=== PATIENT | female | born 1950 | race African-American/Black ===

== ENCOUNTER 2017-09-18 09:37 | Emergency (ER) | payer MEDICARE ==
[2017-09-18] MEDS: IPRATRPIUM/ALBUTEROL 0.5/2.5MG 3 ML NEBU. NEB (10:17)
[2017-09-18] MEDS: predniSONE 10 MG TABLET PO ×2 (10:26→11:25)
[2017-09-18 10:42] LABS: BASO % 1 % (0-3); EOS # 0.1 x10^3/uL (0.0-0.7); EOS % 2 % (0-3); HEMATOCRIT 39.9 % (36.0-47.0); HEMOGLOBIN 12.8 g/dL (12.0-15.5); LYMPH # 3.3 x10^3/uL (1.0-4.8); LYMPH % 56 % (24-48); MEAN CORPUSCULAR HEMOGLOBIN 26 pg (25-35); MEAN CORPUSCULAR HGB CONC 32 g/dL (31-37); MEAN CORPUSCULAR VOLUME 79 fL (79-100); MONO # 0.6 x10^3/uL (0.0-1.1); MONO % 10 % (0-9); NEUT # 1.8 x10^3uL (1.8-7.7); NEUT % 31 % (31-73); PLATELET COUNT 259 x10^3/uL (140-400); RED BLOOD COUNT 5.03 x10^6/uL (3.50-5.40); RED CELL DISTRIBUTION WIDTH 14.7 % (11.5-14.5); WHITE BLOOD COUNT 5.9 x10^3/uL (4.0-11.0)
[2017-09-18 10:45] LABS: ADD MAN DIFF? YES
[2017-09-18 10:55] LABS: ANION GAP 11 (6-14); BLOOD UREA NITROGEN 12 mg/dL (7-20); CALCIUM 9.7 mg/dL (8.5-10.1); CARBON DIOXIDE 27 mmol/L (21-32); CHLORIDE 104 mmol/L (98-107); GFR 66.7; GLUCOSE 108 mg/dL (70-99); POTASSIUM 3.9 mmol/L (3.5-5.1); SODIUM 142 mmol/L (136-145)
[2017-09-18 11:07] LABS: TROPONINI < 0.017 ng/mL (0.000-0.055)
[2017-09-18 11:29] LABS: BILIRUBIN,URINE NEGATIVE (NEG); CLARITY,URINE CLEAR; COLOR,URINE YELLOW; GLUCOSE,URINE NEGATIVE (NEG); NITRITE,URINE NEGATIVE (NEG); PROTEIN,URINE NEGATIVE (NEG-TRACE); UROBILINOGEN,URINE 0.2 mg/dL (0.2 mg/dL)
[2017-09-18] MEDS: ALBUTEROL SULFATE 2.5 MG/3 ML NEBU. NEB ×2 (11:30→14:12)
[2017-09-18 11:39] LABS: BACTERIA,URINE FEW /HPF (0-FEW); RBC,URINE RARE /HPF (0-2); SQUAMOUS EPITHELIAL CELL,UR FEW /LPF
[2017-09-18 12:53] LABS: % ATYL 4 % (0-0); % BANDS 3 % (0-9); % EOS 3 % (0-5); % LYMPHS 63 % (24-48); % MONOS 5 % (0-10); % SEGS 22 % (35-66); PLT ESTIMATE ADEQUATE (ADEQUATE)
[2017-09-18] MEDS: MECLIZINE HCL 12.5 MG TABLET. PO (14:21)
[2017-09-18 14:27] LABS: D-DIMER 0.43 ug/mlFEU (0.00-0.50)
== END 2017-09-18 15:44 | disposition home or self-care (01) ==
LOC: ER 09:37
DX: R06.02 Shortness of breath (principal); R05 Cough; R42 Dizziness and giddiness; J45.909 Unspecified asthma, uncomplicated; G25.81 Restless legs syndrome; Z88.5 Allergy status to narcotic agent; Z91.041 Radiographic dye allergy status; Z88.0 Allergy status to penicillin
CPT/HCPCS: 36415; 71045; 80048; 81001; 84484; 85007; 85025; 85379; 93005; 94640; 99285-25; J7512; J7613; J7620; J8597

== ENCOUNTER 2018-08-13 11:03 | Emergency (ER) | payer MEDICARE ==
[~2018-08-13] VITALS: Ht 154.9 cm; Wt 67.6 kg
[~2018-08-13 11:03] MED LIST: ALBU0.63 NEB; CLON0.5T PO; GABA-689 PO; HYDR-2761 PO; HYDR-3164 PO; IBUP-1060 PO; LORA0.5T PO; LORA1TAB PO; MECL25TA3 PO; MONT10TA9 PO; PRED50TA PO; TRAM50TA PO
[2018-08-13 11:17] VITALS: BP 128/62
[2018-08-13] MEDS ORDERED: diazePAM 2 MG TABLET PO ONE (11:30)
[2018-08-13] MEDS ORDERED: KETOROLAC 60 MG/2 ML VIAL. IM ONE (11:30)
--- NOTE | 2018-08-13 11:30 | PHYS DOC ---
Past Medical History Past Medical History: Asthma Additional Past Medical Histor: RESTLESS LEG SYNDROME, MENIERES, VERTIGO Past Surgical History: Cholecystectomy, Hysterectomy, Tonsillectomy, Other Additional Past Surgical Histo: BACK SURGERY Alcohol Use: None Drug Use: None Adult General Chief Complaint Chief Complaint: BACK PAIN - NO INJURY [facility] HPI Patient is a 67 year old female presents to the ED complaining of back pain 2 weeks ago. Patient states she had back pain off and on for the last 2 weeks. Describes the pain as sharp. Rates the pain as 8 out of 10. States that she was seen by her doctor on Monday and is being sent for outpatient MRI. Patient states she has been taking tramadol at home without relief. Patient able to ambulate without assistance. Denies injury, bowel/bladder changes, saddle anesthesia, radiating pain, weakness, dizziness, chest pain, shortness of breath , dysuria, hematuria, flank pain or fever. Review of Systems Review of Systems Constitutional: Denies fever or chills [] Eyes: Denies change in visual acuity, redness, or eye pain [] HENT: Denies nasal congestion or sore throat [] Respiratory: Denies cough or shortness of breath [] Cardiovascular: No additional information not addressed in HPI [] GI: Denies abdominal pain, nausea, vomiting, bloody stools or diarrhea [] : Denies dysuria or hematuria [] Musculoskeletal: Complains of back pain. Denies joint pain [] Integument: Denies rash or skin lesions [] Neurologic: Denies headache, focal weakness or sensory changes [] All other systems were reviewed and found to be within normal limits, except as documented in this note. Current Medications Current Medications Current Medications Medications (Trade) Dose Ordered Sig/[facility] Start Time Stop Time Status Last Admin Dose Admin Diazepam (Valium) 2 mg 1X ONCE 08/13/18 11:30 08/13/18 11:31 DC 08/13/18 12:11 2 MG Ketorolac Tromethamine (Toradol Im) 60 mg 1X ONCE 08/13/18 11:30 08/13/18 11:31 DC 08/13/18 11:41 60 MG Allergies Allergies Allergies Coded Allergies Type Severity Reaction Last Updated Verified iodine Allergy Severe 03/03/16 Yes Penicillins Allergy Intermediate RASH 03/01/16 Yes naproxen Adverse Reaction Mild Nausea and Vomiting 03/01/16 Yes Physical Exam Physical Exam Constitutional: Well developed, well nourished, no acute distress, non-toxic appearance. [] HENT: Normocephalic, atraumatic. Eyes: PERRLA, EOMI, conjunctiva normal, no discharge. [] Neck: Normal range of motion, no tenderness, supple, no stridor. [] Cardiovascular:Heart rate regular rhythm, no murmur [] Lungs & Thorax: Bilateral breath sounds clear to auscultation [] Abdomen: Bowel sounds normal, soft, no tenderness, no masses, no pulsatile masses. [] Skin: Warm, dry, no erythema, no rash. [] Back: No midline bony tenderness, FROM. NV intact. No overlying skin changes. negative SLR. no CVA tenderness. [] Extremities: No tenderness, no cyanosis, no clubbing, ROM intact, no edema. [] Neurologic: Alert and oriented X 3, normal motor function, normal sensory function, no focal deficits noted. DTR's intact. [] Psychologic: Affect normal, judgement normal, mood normal. [] Current Patient Data Vital Signs Vital Signs Date Time Temp Pulse Resp B/P (MAP) Pulse Ox O2 Delivery O2 Flow Rate FiO2 08/13/18 11:17 98.6 74 20 128/62 (84) 97 Room Air 98.6 EKG EKG [] Radiology/Procedures Radiology/Procedures [] Course & Med Decision Making Course & Med Decision Making Pertinent Labs and Imaging studies reviewed. (See chart for details) []No bony tenderness. No imaging warranted. Patient's pain improved in ED. States she is feeling much better. Will discharge with analgesics outpatient. Patient able to ambulate without assistance. Discussed follow-up with PCP/ orthopedics for worsening pain. Provided contact information/education. Discussed reasons to return to the ED. Patient understands and agrees with plan. Dragon Disclaimer Dragon Disclaimer This electronic medical record was generated, in whole or in part, using a voice recognition dictation system. Departure Departure Impression: Primary Impression: Back pain Disposition: 01 HOME, SELF-CARE Condition: IMPROVED Referrals: UNKNOWN PCP NAME (PCP) ZACH MARY II, MD Patient Instructions: Back Pain, Adult Scripts Hydrocodone/Apap 5-325 (NORCO 5-325 TABLET) 1 Each Tablet 1 TAB PO TID, #10 TAB Prov: PAUL JEROME 08/13/18 PAUL JEROME Aug 13, 2018 11:29
[2018-08-13] MEDS ORDERED: HYDR-3164 PO (12:15)
== END 2018-08-13 12:17 | disposition home or self-care (01) ==
LOC: ER 11:03
DX: M54.9 Dorsalgia, unspecified (principal); J45.909 Unspecified asthma, uncomplicated; Z90.49 Acquired absence of other specified parts of digestive tract; Z90.710 Acquired absence of both cervix and uterus; Z88.0 Allergy status to penicillin; Z88.5 Allergy status to narcotic agent; Z91.041 Radiographic dye allergy status
CPT/HCPCS: 96372; 99283; J1885

== ENCOUNTER 2019-04-19 10:31 | Emergency (ER) | payer MEDICARE ==
[~2019-04-19] VITALS: Ht 149.9 cm; Wt 71.2 kg
[~2019-04-19 10:31] MED LIST changes: +MONT10TA49 PO; -MONT10TA9 PO; +Prednisone PO
[2019-04-19 11:07] LABS: BILIRUBIN,URINE NEGATIVE (NEG); CLARITY,URINE CLEAR; COLOR,URINE YELLOW; NITRITE,URINE NEGATIVE (NEG); PH,URINE 5.5; PROTEIN,URINE NEGATIVE (NEG-TRACE); UROBILINOGEN,URINE 0.2 mg/dL (0.2 mg/dL)
[2019-04-19] MEDS ORDERED: ALBUTEROL SULFATE 2.5 MG/3 ML NEBU. NEB ONE (11:15)
[2019-04-19] MEDS ORDERED: ONDANSETRON PF 4 MG/2 ML VIAL. IV ONE (11:15)
[2019-04-19] MEDS ORDERED: predniSONE 10 MG TABLET PO ONE (11:15)
[2019-04-19] MEDS ORDERED: IV NORMAL SALINE 1000ML BAG 1,000 ML IV ONE (11:15)
[2019-04-19] MEDS ORDERED: HYDROcodone/APAP 5/325MG 1 TAB TABLET PO ONE (11:15)
[2019-04-19 11:24] LABS: SQUAMOUS EPITHELIAL CELL,UR MANY /LPF
[2019-04-19 11:25] LABS: BACTERIA,URINE FEW /HPF (0-FEW)
[2019-04-19 11:35] LABS: CALCIUM 8.7 mg/dL (8.5-10.1); CREATININE 0.9 mg/dL (0.6-1.0); GFR 74.9; POTASSIUM 3.9 mmol/L (3.5-5.1)
[2019-04-19 11:36] LABS: BASO % 1 % (0-3); EOS # 0.1 x10^3/uL (0.0-0.7); EOS % 1 % (0-3); HEMATOCRIT 39.7 % (36.0-47.0); HEMOGLOBIN 12.4 g/dL (12.0-15.5); LYMPH # 1.8 x10^3/uL (1.0-4.8); LYMPH % 38 % (24-48); MEAN CORPUSCULAR HEMOGLOBIN 25 pg (25-35); MEAN CORPUSCULAR HGB CONC 31 g/dL (31-37); MEAN CORPUSCULAR VOLUME 79 fL (79-100); MONO # 0.7 x10^3/uL (0.0-1.1); MONO % 15 % (0-9); NEUT # 2.2 x10^3/uL (1.8-7.7); NEUT % 45 % (31-73); PLATELET COUNT 189 x10^3/uL (140-400); RED BLOOD COUNT 5.03 x10^6/uL (3.50-5.40); RED CELL DISTRIBUTION WIDTH 15.4 % (11.5-14.5); WHITE BLOOD COUNT 4.8 x10^3/uL (4.0-11.0)
[2019-04-19 11:40] LABS: ALBUMIN 3.6 g/dL (3.4-5.0); ALBUMIN/GLOBULIN RATIO 0.9 (1.0-1.7); TOTAL BILIRUBIN 0.4 mg/dL (0.2-1.0); TOTAL PROTEIN 7.6 g/dL (6.4-8.2)
--- NOTE | 2019-04-19 11:42 | PHYS DOC ---
Past Medical History Past Medical History: Asthma, Other Additional Past Medical Histor: RESTLESS LEG SYNDROME, MENIERES, VERTIGO Past Surgical History: Cholecystectomy, Hysterectomy, Tonsillectomy, Other Additional Past Surgical Histo: BACK SURGERY Alcohol Use: None Drug Use: None Adult General Chief Complaint Chief Complaint: WEAKNESS/GENERALIZED HPI HPI Patient is a 68 year old female who presents with states that the flu shot on Monday and then began having headache, cough with yellow mucus production, nausea, weakness. States on Monday she vomited twice. Patient does have a history of asthma and took an asthma albuterol treatment at 7 AM today. Rates her overall pain 8 out of 10. She states from all the coughing she's having upper back pain and bilateral side pain. Patient states she has not been taking any other medications except drinking tea and ate some soup yesterday. Review of Systems Review of Systems Constitutional: Denies fever or chills [] Eyes: Denies change in visual acuity, redness, or eye pain [] HENT: nasal congestion or sore throat [] Respiratory: cough or shortness of breath [] GI: Denies abdominal pain. + nausea, +vomiting, bloody stools or diarrhea [] Musculoskeletal: upper back pain, bilateral side pain, generalized weakness or joint pain [] All other systems were reviewed and found to be within normal limits, except as documented in this note. Current Medications Current Medications Current Medications Medications (Trade) Dose Ordered Sig/[facility] Start Time Stop Time Status Last Admin Dose Admin Acetaminophen/ Hydrocodone Bitart (Lortab 5/325) 1 tab 1X ONCE 04/19/19 11:15 04/19/19 11:16 DC 04/19/19 11:35 1 TAB Albuterol Sulfate (Ventolin Neb Soln) 2.5 mg 1X ONCE 04/19/19 11:15 04/19/19 11:16 DC 04/19/19 11:25 2.5 MG Ondansetron HCl (Zofran) 4 mg 1X ONCE 04/19/19 11:15 04/19/19 11:16 DC 04/19/19 11:37 4 MG Prednisone (Prednisone) 50 mg 1X ONCE 04/19/19 11:15 04/19/19 11:16 DC 04/19/19 11:35 50 MG Sodium Chloride 1,000 ml @ 1,000 mls/hr 1X ONCE 04/19/19 11:15 04/19/19 12:14 DC 04/19/19 11:36 1,000 MLS/HR Allergies Allergies Allergies Coded Allergies Type Severity Reaction Last Updated Verified iodine Allergy Severe 03/03/16 Yes Penicillins Allergy Intermediate RASH 03/01/16 Yes naproxen Adverse Reaction Mild Nausea and Vomiting 03/01/16 Yes Physical Exam Physical Exam Constitutional: Well developed, well nourished, no acute distress, non-toxic appearance. [] HENT: Normocephalic, atraumatic, bilateral external ears normal, oropharynx moist, no oral exudates, nose normal. [] Eyes: PERRLA, EOMI, conjunctiva normal, no discharge. [] Neck: Normal range of motion, no tenderness, supple, no stridor. [] Cardiovascular:Heart rate regular rhythm, no murmur [] Lungs & Thorax: right upper breath expiratory wheeze, left upper lobe clear and bilateral lower diminished sounds clear to auscultation [] Abdomen: Bowel sounds normal, soft, no tenderness, no masses, no pulsatile masses. [] Skin: Warm, dry, no erythema, no rash. [] Back: No tenderness, no CVA tenderness. [] Extremities: No tenderness, no cyanosis, no clubbing, ROM intact, no edema. [] Neurologic: Alert and oriented X 3, normal motor function, normal sensory function, no focal deficits noted. [] Psychologic: Affect normal, judgement normal, mood normal. [] Current Patient Data Vital Signs Vital Signs Date Time Temp Pulse Resp B/P (MAP) Pulse Ox O2 Delivery O2 Flow Rate FiO2 04/19/19 11:35 12 99 Room Air 04/19/19 10:38 99.0 79 141/80 (100) 99.0 Lab Values Laboratory Tests Test 04/19/19 10:38 04/19/19 11:06 Urine Collection Type Void Urine Color Yellow Urine Clarity Clear Urine pH 5.5 Urine Specific [place] 1.025 Urine Protein Negative mg/dL (NEG-TRACE) Urine Glucose (UA) Negative mg/dL (NEG) Urine Ketones (Stick) Negative mg/dL (NEG) Urine Blood Trace (NEG) Urine Nitrite Negative (NEG) Urine Bilirubin Negative (NEG) Urine Urobilinogen Dipstick 0.2 mg/dL (0.2 mg/dL) Urine Leukocyte Esterase Negative (NEG) Urine RBC 1-2 /HPF (0-2) Urine WBC 1-4 /HPF (0-4) Urine Squamous Epithelial Cells Many /LPF Urine Bacteria Few /HPF (0-FEW) Urine Mucus Marked /LPF White Blood Count 4.8 x10^3/uL (4.0-11.0) Red Blood Count 5.03 x10^6/uL (3.50-5.40) Hemoglobin 12.4 g/dL (12.0-15.5) Hematocrit 39.7 % (36.0-47.0) Mean Corpuscular Volume 79 fL (79-100) Mean Corpuscular Hemoglobin 25 pg (25-35) Mean Corpuscular Hemoglobin Concent 31 g/dL (31-37) Red Cell Distribution Width 15.4 % (11.5-14.5) H Platelet Count 189 x10^3/uL (140-400) Neutrophils (%) (Auto) 45 % (31-73) Lymphocytes (%) (Auto) 38 % (24-48) Monocytes (%) (Auto) 15 % (0-9) H Eosinophils (%) (Auto) 1 % (0-3) Basophils (%) (Auto) 1 % (0-3) Neutrophils # (Auto) 2.2 x10^3/uL (1.8-7.7) Lymphocytes # (Auto) 1.8 x10^3/uL (1.0-4.8) Monocytes # (Auto) 0.7 x10^3/uL (0.0-1.1) Eosinophils # (Auto) 0.1 x10^3/uL (0.0-0.7) Basophils # (Auto) 0.0 x10^3/uL (0.0-0.2) Sodium Level 140 mmol/L (136-145) Potassium Level 3.9 mmol/L (3.5-5.1) Chloride Level 105 mmol/L (98-107) Carbon Dioxide Level 25 mmol/L (21-32) Anion Gap 10 (6-14) Blood Urea Nitrogen 10 mg/dL (7-20) Creatinine 0.9 mg/dL (0.6-1.0) Estimated GFR (Cockcroft-Gault) 74.9 BUN/Creatinine Ratio 11 (6-20) Glucose Level 104 mg/dL (70-99) H Lactic Acid Level 0.9 mmol/L (0.4-2.0) Calcium Level 8.7 mg/dL (8.5-10.1) Total Bilirubin 0.4 mg/dL (0.2-1.0) Aspartate Amino Transferase (AST) 15 U/L (15-37) Alanine Aminotransferase (ALT) 12 U/L (14-59) L Alkaline Phosphatase 58 U/L (46-116) Total Protein 7.6 g/dL (6.4-8.2) Albumin 3.6 g/dL (3.4-5.0) Albumin/Globulin Ratio 0.9 (1.0-1.7) L Influenza Type A Antigen Positive (NEGATIVE) Influenza Type B Antigen Negative (NEGATIVE) Laboratory Tests 04/19/19 11:06 Laboratory Tests 04/19/19 11:06 Radiology/Procedures Radiology/Procedures [] Impressions: [facility] [address] [place], [place] [id number] IMAGING REPORT Signed PATIENT: RUPAL SAEED ACCOUNT: [id number] : 1950 LOCATION: ER AGE: 68 SEX: F EXAM STATUS: REG ER ORD. PHYSICIAN: NEGRO SERNA APRN REASON: cough,pt states right sided pain with cough PROCEDURE: CHEST PA & LATERAL CHEST PA LATERAL History: Cough, right-sided pain Comparison: September 18, 2017 Findings: 2 views of the chest are submitted. There is no dependent pleural fluid or pneumothorax. Heart size is stable, within normal limits. There is moderate S-shaped scoliosis of the thoracolumbar spine. There is no lobar consolidation. There is probable mild left base atelectasis, also minimally of the mid right hemithorax. Impression: 1. There is mild atelectasis bilaterally 2. There is S-shaped scoliosis of the thoracolumbar spine. Electronically signed by: Nellie Pineda MD (04/19/2019 11:42 AM) [facility] DICTATED and SIGNED BY: NELLIE PINEDA MD DATE: 04/19/19 1142 Course & Med Decision Making Course & Med Decision Making Right upper lobe expiratory wheezing and left upper lobe clear with bilateral diminished lower lobes. Abdomen soft and nontender. Skin pink warm and dry. Mucous murmurs moist. Vital signs within normal limits. States she becomes short of air when she is coughing. Denies chest pain, diarrhea, fever, LOC, dizziness, visual changes, focal weakness, neck pain or dysuria. PERRLA. Ambulatory unsteady gait. Speaks in full clear sentences. Moves all extremities equally with equal strengths. Denies any numbness or tingling. Patient states the headache is generalized. Patient has a history of asthma, vertigo. Blood work unremarkable. Urinalysis does not show infection. Flu A positive. Orthostaics normal. [] Dragon Disclaimer Dragon Disclaimer This electronic medical record was generated, in whole or in part, using a voice recognition dictation system. Departure Departure Impression: Primary Impression: Influenza A Disposition: HOME, SELF-CARE Condition: STABLE Referrals: KIKI SAMS (PCP) Patient Instructions: Influenza A (H1N1) Additional Instructions: Drink plenty of fluids. Take Tylenol or Ibuprofen for your pain. Take medications as prescribed. Use your nebulizer every 4-6 hours. Follow up with primary care provider. Scripts Benzonatate (TESSALON PERLE) 100 Mg Capsule 1 CAP PO TID, #30 CAP Prov: NEGRO SERNA APRN 04/19/19 Albuterol Sulfate (PROAIR HFA INHALER) 8.5 Gm Hfa.aer.ad 1 PUFF INH PRN Q6HRS PRN for SHORTNESS OF BREATH, #1 INHALER 0 Refills Prov: NEGRO SERNA APRN 04/19/19 Albuterol Sulfate (ALBUTEROL SULFATE NEB SOLN) 2.5 Mg/3 Ml Vial.neb 1 VIAL NEB PRN Q4HRS, #50 VIAL Prov: NEGRO SERNA APRN 04/19/19 Methylprednisolone (MEDROL) 4 Mg Tab.ds.pk 1 PKG PO UD, #1 PKG Prov: NEGRO SERNA APRN 04/19/19 Oseltamivir Phosphate (TAMIFLU) 75 Mg Capsule 1 CAP PO BID for 5 Days, #10 CAP Prov: NEGRO SERNA APRN 04/19/19 NEGRO SERNA APRN Apr 19, 2019 11:42
--- NOTE | 2019-04-19 11:45 | RAD ---
CHEST PA LATERAL History: Cough, right-sided pain Comparison: September 18, 2017 Findings: 2 views of the chest are submitted. There is no dependent pleural fluid or pneumothorax. Heart size is stable, within normal limits. There is moderate S-shaped scoliosis of the thoracolumbar spine. There is no lobar consolidation. There is probable mild left base atelectasis, also minimally of the mid right hemithorax. Impression: 1. There is mild atelectasis bilaterally 2. There is S-shaped scoliosis of the thoracolumbar spine. Electronically signed by: Graeme Carrera MD (04/19/2019 11:42 AM) [facility]
[2019-04-19 11:46] LABS: INFLUENZA A PATIENT POSITIVE (NEGATIVE); INFLUENZA B PATIENT NEGATIVE (NEGATIVE)
[2019-04-19] MEDS ORDERED: OSEL75CA PO (12:10)
[2019-04-19] MEDS ORDERED: ALBU2.5V8 INH (12:10)
[2019-04-19] MEDS ORDERED: ALBU2.5V5 NEB (12:10)
[2019-04-19] MEDS ORDERED: METH4TAB2 PO (12:10)
[2019-04-19] MEDS ORDERED: BENZ100C PO (12:18)
[2019-04-19 12:30] VITALS: BP 122/73
== END 2019-04-19 12:30 | disposition home or self-care (01) ==
LOC: ER 10:31
DX: J10.1 Influenza due to other identified influenza virus with other respiratory manifestations (principal); R11.2 Nausea with vomiting, unspecified; J45.909 Unspecified asthma, uncomplicated; Z90.49 Acquired absence of other specified parts of digestive tract; Z90.710 Acquired absence of both cervix and uterus; Z88.8 Allergy status to other drugs, medicaments and biological substances; Z88.0 Allergy status to penicillin
CPT/HCPCS: 36415; 71046; 80053; 81001; 83605; 85025; 87804; 94640; 96361; 96374; 99285; J2405; J7030; J7512; J7613

== ENCOUNTER 2020-06-19 18:44 | Emergency (ER) | payer MEDICARE ==
[~2020-06-19] VITALS: Ht 154.9 cm; Wt 72.7 kg
[~2020-06-19 18:44] MED LIST changes: +ALBU2.5V5 NEB; +ALBU2.5V8 INH; +BENZ100C PO; +MECL-75 PO; -MECL25TA3 PO; +METH4TAB2 PO; +OSEL75CA PO
[2020-06-19] MEDS ORDERED: LORazepam 0.5 MG TABLET PO ONE (19:15)
--- NOTE | 2020-06-19 19:29 | PHYS DOC ---
Past Medical History Past Medical History: Asthma, Other Additional Past Medical Histor: RESTLESS LEG SYNDROME, MENIERES, VERTIGO Past Surgical History: Cholecystectomy, Hysterectomy, Tonsillectomy, Other Additional Past Surgical Histo: BACK SURGERY Smoking Status: Never Smoker Alcohol Use: None Drug Use: None Adult General Chief Complaint Chief Complaint: DIZZY/LIGHT HEADED HPI HPI Patient is a 69 year old female reported past medical history of vertigo presenting the emergency department complaining of dizziness. Patient states that she ran out of her home medication regimen which you years for her BP and it has been having vertigo. Denies any cough, fever, chills, chest pain or shortness of breath at this time. Review of Systems Review of Systems Constitutional: Denies fever or chills [] Eyes: Denies change in visual acuity, redness, or eye pain [] HENT: Denies nasal congestion or sore throat [] Respiratory: Denies cough or shortness of breath [] Cardiovascular: No additional information not addressed in HPI [] GI: Denies abdominal pain, nausea, vomiting, bloody stools or diarrhea [] : Denies dysuria or hematuria [] Musculoskeletal: Denies back pain or joint pain [] Integument: Denies rash or skin lesions [] Neurologic: Denies headache, focal weakness or sensory changes [] Endocrine: Denies polyuria or polydipsia [] All other systems were reviewed and found to be within normal limits, except as documented in this note. Current Medications Current Medications Current Medications Medications (Trade) Dose Ordered Sig/[facility] Start Time Stop Time Status Last Admin Dose Admin Acetaminophen (Tylenol) 1,000 mg 1X ONCE 06/19/20 22:30 06/19/20 22:31 DC 06/19/20 22:35 1,000 MG Ibuprofen (Motrin) 800 mg 1X ONCE 06/19/20 22:30 06/19/20 22:31 DC 06/19/20 22:36 800 MG Lorazepam (Ativan) 0.5 mg 1X ONCE 06/19/20 19:15 06/19/20 19:18 DC Allergies Allergies Allergies Coded Allergies Type Severity Reaction Last Updated Verified iodine Allergy Severe 03/03/16 Yes Penicillins Allergy Intermediate RASH 03/01/16 Yes naproxen Adverse Reaction Mild Nausea and Vomiting 03/01/16 Yes Physical Exam Physical Exam Constitutional: Well developed, well nourished, no acute distress, non-toxic appearance. [] HENT: Normocephalic, atraumatic, bilateral external ears normal, oropharynx moist, no oral exudates, nose normal. [] Eyes: PERRLA, EOMI, conjunctiva normal, no discharge. [] Neck: Normal range of motion, no tenderness, supple, no stridor. [] Cardiovascular:Heart rate regular rhythm, no murmur [] Lungs & Thorax: Bilateral breath sounds clear to auscultation [] Abdomen: Bowel sounds normal, soft, no tenderness, no masses, no pulsatile masses. [] Skin: Warm, dry, no erythema, no rash. [] Back: No tenderness, no CVA tenderness. [] Extremities: No tenderness, no cyanosis, no clubbing, ROM intact, no edema. [] Neurologic: Alert and oriented X 3, normal motor function, normal sensory function, no focal deficits noted. [] Psychologic: Affect normal, judgement normal, mood normal. [] Current Patient Data Vital Signs Vital Signs Date Time Temp Pulse Resp B/P (MAP) Pulse Ox O2 Delivery O2 Flow Rate FiO2 06/19/20 18:44 97.8 65 19 180/72 (108) 100 Room Air 97.8 Lab Values Laboratory Tests Test 06/19/20 19:35 06/19/20 20:09 06/19/20 22:38 White Blood Count 6.0 x10^3/uL (4.0-11.0) Red Blood Count 5.08 x10^6/uL (3.50-5.40) Hemoglobin 13.2 g/dL (12.0-15.5) Hematocrit 40.7 % (36.0-47.0) Mean Corpuscular Volume 80 fL (79-100) Mean Corpuscular Hemoglobin 26 pg (25-35) Mean Corpuscular Hemoglobin Concent 32 g/dL (31-37) Red Cell Distribution Width 16.1 % (11.5-14.5) H Platelet Count 248 x10^3/uL (140-400) Neutrophils (%) (Auto) 43 % (31-73) Lymphocytes (%) (Auto) 44 % (24-48) Monocytes (%) (Auto) 10 % (0-9) H Eosinophils (%) (Auto) 2 % (0-3) Basophils (%) (Auto) 1 % (0-3) Neutrophils # (Auto) 2.6 x10^3/uL (1.8-7.7) Lymphocytes # (Auto) 2.7 x10^3/uL (1.0-4.8) Monocytes # (Auto) 0.6 x10^3/uL (0.0-1.1) Eosinophils # (Auto) 0.1 x10^3/uL (0.0-0.7) Basophils # (Auto) 0.0 x10^3/uL (0.0-0.2) Troponin I Quantitative < 0.017 ng/mL (0.000-0.055) Sodium Level 140 mmol/L (136-145) Potassium Level 3.9 mmol/L (3.5-5.1) Chloride Level 105 mmol/L (98-107) Carbon Dioxide Level 28 mmol/L (21-32) Anion Gap 7 (6-14) Blood Urea Nitrogen 13 mg/dL (7-20) Creatinine 0.8 mg/dL (0.6-1.0) Estimated GFR (Cockcroft-Gault) 85.6 BUN/Creatinine Ratio 16 (6-20) Glucose Level 115 mg/dL (70-99) H Calcium Level 9.1 mg/dL (8.5-10.1) Total Bilirubin 0.2 mg/dL (0.2-1.0) Aspartate Amino Transferase (AST) 16 U/L (15-37) Alanine Aminotransferase (ALT) 21 U/L (14-59) Alkaline Phosphatase 65 U/L (46-116) Total Protein 7.4 g/dL (6.4-8.2) Albumin 3.6 g/dL (3.4-5.0) Albumin/Globulin Ratio 0.9 (1.0-1.7) L Urine Collection Type Unknown Urine Color Yellow Urine Clarity Clear Urine pH 6.0 (<5.0-8.0) Urine Specific [place] 1.010 (1.000-1.030) Urine Protein Negative mg/dL (NEG-TRACE) Urine Glucose (UA) Negative mg/dL (NEG) Urine Ketones (Stick) Negative mg/dL (NEG) Urine Blood Negative (NEG) Urine Nitrite Negative (NEG) Urine Bilirubin Negative (NEG) Urine Urobilinogen Dipstick 0.2 mg/dL (0.2 mg/dL) Urine Leukocyte Esterase Trace (NEG) Urine RBC 0 /HPF (0-2) Urine WBC 1-4 /HPF (0-4) Urine Squamous Epithelial Cells Mod /LPF Urine Bacteria Moderate /HPF (0-FEW) Laboratory Tests 06/19/20 19:35 Laboratory Tests 06/19/20 20:09 EKG EKG [] Radiology/Procedures Radiology/Procedures CT Head W/O Contrast: History: Reason: ALTERED / Spl. Instructions: / History: Comparison: January 23, 2007 Axial images were obtained without contrast. The cheek and white matter appears normal and symmetrical for the patients age. There is no mass effect, extraaxial fluid collections or hydrocephalus. There is no gross bleed. There is no focal loss of cheek-white matter distinction to suggest acute ischemia, i.e. stroke. There has been mastoidectomy on the left. Impression: No acute findings. PQRS Compliance Statement: One or more of the following individualized dose reduction techniques were utilized for this examination: 1. Automated exposure control 2. Adjustment of the mA and/or kV according to patient size 3. Use of iterative reconstruction technique Electronically signed by: Jose Lopez III, MD (06/19/2020 8:51 PM) [facility] Course & Med Decision Making Course & Med Decision Making Pertinent Labs and Imaging studies reviewed. (See chart for details) 69F presented with nonspecific vertigo and headache primarily likely secondary to chronic vertigo but patient does seem to be having a little difficulty speaking therefore will obtain an infectious and cardiac work-up to make sure there is no significant underlying etiology. No evidence of syncope or altered mental status at this time. 23:30 -CT scan and work-up negative for any significant infectious etiology. Patient given medication for vertigo and states that she is feeling better. At this time will plan for discharge home under the care of the patient's daughter [] Dragon Disclaimer Dragon Disclaimer This electronic medical record was generated, in whole or in part, using a voice recognition dictation system. Departure Departure Impression: Primary Impression: Vertigo Disposition: 01 DC HOME SELF CARE/HOMELESS Condition: GOOD Referrals: KIKI SAMS (PCP) Patient Instructions: Vertigo Additional Instructions: EMERGENCY DEPARTMENT GENERAL DISCHARGE INSTRUCTIONS Thank you for coming to [facility] Emergency Department (ED) today and trusting us with you care. We trust that you had a positive experience in our Emergency Department. If you wish to speak to the department management, you may call the Director at [phone]. YOUR FOLLOW UP INSTRUCTIONS ARE FOLLOWS: 1. Do you have a private Doctor? If you do not have a private doctor, please ask for a resource list of physicians or clinics that may be able to assist you with follow up care. 2. The Emergency Physicain has interpreted your x-rays. The X-Ray specialist will also review them. If there is a change in the findings, you will be notified in 48 hours when at all possible. 3. A lab test or culture has been done, your results will be reviewed and you will be notified if you need a change in treatment. ADDITIONAL INSTRUCTIONS AND INFORMATION: 1. Your care today has been supervised by a physician who is specially trained in emergency care. Many problems require more than one evaluation for a complete diagnosis and treatment. We recommend that you schedule your follow up appointment as recommended to ensure complete treatment of you illness or injury. If you are unable to obtain follow up care and continue to have a problem, or if your condition worsens, we recommend that you return to the ED. 2. We are not able to safely determine your condition over the phone nor are we able to give sound medical advice over the phone. For these safety reasons, if you call for medical advice we will ask you to come to the ED for further evaluation. 3. If you have any questions regarding these discharge instructions please call the ED at [phone]. SAFETY INFORMATION: In the interest of safety, wellness, and injury prevention; we encourage you to wear your sealbelt, if you smoke; quite smoking, and we encourage family to use a protective helmet for bicycling and other sporting events that present an increased risk for head injury. IF YOUR SYMPTOMS WORSEN OR NEW SYMPTOMS DEVELOP, OR YOU HAVE CONCERNS ABOUT YOUR CONDITION; OR IF YOUR CONDITION WORSENS WHILE YOU ARE WAITING FOR YOUR FOLLOW UP APPOINTMENT; EITHER CONTACT YOUR PRIMARY CARE DOCTOR, THE PHYSICIAN WHOSE NAME AND NUMBER YOU WERE GIVEN, OR RETURN TO THE ED IMMEDIATELY. Scripts Meclizine Hcl (MECLIZINE HCL) 25 Mg Tablet 1 TAB PO PRN TID, #30 TAB Prov: HORTENCIA RUANO MD 06/19/20 Lorazepam (ATIVAN) 0.5 Mg Tablet 0.5 MG PO DAILY for 30 Days, #30 TAB Prov: HORTENCIA RUANO MD 06/19/20 HORTENCIA RUANO MD Jun 19, 2020 19:29
[2020-06-19 19:48] LABS: BASO % 1 % (0-3); EOS # 0.1 x10^3/uL (0.0-0.7); EOS % 2 % (0-3); HEMATOCRIT 40.7 % (36.0-47.0); HEMOGLOBIN 13.2 g/dL (12.0-15.5); LYMPH # 2.7 x10^3/uL (1.0-4.8); LYMPH % 44 % (24-48); MEAN CORPUSCULAR HEMOGLOBIN 26 pg (25-35); MEAN CORPUSCULAR HGB CONC 32 g/dL (31-37); MEAN CORPUSCULAR VOLUME 80 fL (79-100); MONO # 0.6 x10^3/uL (0.0-1.1); MONO % 10 % (0-9); NEUT # 2.6 x10^3/uL (1.8-7.7); NEUT % 43 % (31-73); PLATELET COUNT 248 x10^3/uL (140-400); RED BLOOD COUNT 5.08 x10^6/uL (3.50-5.40); RED CELL DISTRIBUTION WIDTH 16.1 % (11.5-14.5)
[2020-06-19 20:40] LABS: CALCIUM 9.1 mg/dL (8.5-10.1); CREATININE 0.8 mg/dL (0.6-1.0); GFR 85.6; POTASSIUM 3.9 mmol/L (3.5-5.1)
[2020-06-19 20:52] LABS: ALBUMIN 3.6 g/dL (3.4-5.0); ALBUMIN/GLOBULIN RATIO 0.9 (1.0-1.7); TOTAL BILIRUBIN 0.2 mg/dL (0.2-1.0); TOTAL PROTEIN 7.4 g/dL (6.4-8.2)
--- NOTE | 2020-06-19 20:54 | RAD ---
CT Head W/O Contrast: History: Reason: ALTERED / Spl. Instructions: / History: Comparison: January 23, 2007 Axial images were obtained without contrast. The cheek and white matter appears normal and symmetrical for the patients age. There is no mass effe ct, extraaxial fluid collections or hydrocephalus. There is no gross bleed. There is no focal loss of cheek-white matter distinction to suggest acute ischemia, i.e. stroke. There has been mastoidectomy on the left. Impression: No acute findings. RS Compliance Statement: One or more of the following individualized dose reduction techniques were utilized for this examinat ion: 1. Automated exposure control 2. Adjustment of the mA and/or kV according to patient size 3. Use of iterative reconstruction technique Electronically signed by: Jose Lopez III, MD (06/19/2020 8:51 PM) [facility]
[2020-06-19] MEDS ORDERED: ACETAMINOPHEN 500 MG TABLET PO ONE (22:30)
[2020-06-19] MEDS ORDERED: IBUPROFEN 400 MG TABLET. PO ONE (22:30)
[2020-06-19 22:45] LABS: BILIRUBIN,URINE NEGATIVE (NEG); CLARITY,URINE CLEAR; COLOR,URINE YELLOW; NITRITE,URINE NEGATIVE (NEG); PROTEIN,URINE NEGATIVE (NEG-TRACE); UROBILINOGEN,URINE 0.2 mg/dL (0.2 mg/dL)
[2020-06-19 22:56] LABS: BACTERIA,URINE MODERATE /HPF (0-FEW)
[2020-06-19 22:57] LABS: RBC,URINE 0 /HPF (0-2)
[2020-06-19] MEDS ORDERED: LORA0.5T96 PO (23:33)
[2020-06-19] MEDS ORDERED: MECL-75 PO (23:33)
[2020-06-20] VITALS: BP 137/76
--- NOTE | 2020-06-20 02:40 | EKG ---
[facility] [address] [place] [address] Test Date: 2020-06-19 Test Time: 21:16:04 Pat Name: RUPAL SAEED Department: Room: Gender: F Flight Operations Specialist: : 1950 Requested By: HORTENCIA RUANO Order Number: [id number] Reading MD: Measurements Intervals [place] Rate: 105 P: 43 [place]: 150 QRS: 59 QRSD: 68 T: 56 QT: 312 QTc: 416 Interpretive Statements SINUS TACHYCARDIA OTHERWISE NORMAL ECG RI6.02 No previous ECG available for comparison
--- NOTE | 2020-06-25 04:42 | EKG ---
[facility] [address] [place] [address] Test Date: 2020-06-19 Test Time: 19:21:24 Pat Name: RUPAL SAEED Department: Room: Gender: F Building Service Worker: : 1950 Requested By: HORTENCIA RUANO Order Number: [id number] Reading MD: Measurements Intervals [place] Rate: 67 P: 56 [place]: 196 QRS: 31 QRSD: 74 T: 60 QT: 410 QTc: 436 Interpretive Statements SINUS RHYTHM NORMAL ECG RI6.02 No previous ECG available for comparison
== END 2020-06-20 00:10 | disposition home or self-care (01) ==
LOC: ER 18:44
DX: R42 Dizziness and giddiness (principal); J45.909 Unspecified asthma, uncomplicated; G25.81 Restless legs syndrome; Z90.49 Acquired absence of other specified parts of digestive tract; Z90.710 Acquired absence of both cervix and uterus
CPT/HCPCS: 36415; 70450; 80053; 81001; 84484; 85025; 87086; 93005; 99285-25

== ENCOUNTER 2021-03-01 12:03 | Emergency (ER) | payer MEDICARE ==
[~2021-03-01] VITALS: Ht 149.9 cm; Wt 75.2 kg
[~2021-03-01 12:03] MED LIST changes: +LORA0.5T96 PO
[2021-03-01] MEDS ORDERED: KETOROLAC 60 MG/2 ML VIAL. IM ONE (16:15)
[2021-03-01 16:48] VITALS: BP 144/67
[2021-03-01] MEDS ORDERED: TRAM50TA PO (17:08)
--- NOTE | 2021-03-01 17:11 | PHYS DOC ---
Past Medical History Past Medical History: Asthma, Hypertension, Other Additional Past Medical Histor: NEUROPATHY, RESTLESS LEG SYNDROME Past Surgical History: Appendectomy, Cholecystectomy, , Hysterectomy, Lumbar Laminectomy Additional Past Surgical Histo: BACK SURGERY Smoking Status: Never Smoker Alcohol Use: None Drug Use: None General Adult EDM: Chief Complaint: LOWER EXT PAIN HPI: HPI: Patient is a 70-year-old female presents to the emergency department complaining of exacerbation of her chronic bilateral lower extremity pain, patient states she ran out of her tramadol at home, patient reports her pain management physician and primary care physician will no longer give her narcotic pain medications. Patient denies new symptoms. Patient denies numbness or tingling to her genitals or buttocks, denies urinary retention, denies loss of bowel or bladder. Patient denies other physical complaints or physical concerns Review of Systems: Review of Systems: 14 body systems of review of systems have been reviewed. See HPI for pertinent positives and negative responses, otherwise all other systems are negative, nonpertinent or noncontributory. Constitutional: Negative except as outlined in HPI above. Skin: Negative except as outlined in HPI above. Eyes: Negative except as outlined in HPI above. HENT: Negative except as outlined in HPI above. Respiratory: Negative except as outlined in HPI above. Cardiovascular: Negative except as outlined in HPI above. GI: Negative except as outlined in HPI above. : Negative except as outlined in HPI above. Musculoskeletal: Negative except as outlined in HPI above. Integument: Negative except as outlined in HPI above. Neurologic: Negative except as outlined in HPI above. Endocrine: Negative except as outlined in HPI above. Lymphatic: Negative except as outlined in HPI above. Psychiatric: Negative except as outlined in HPI above. Heart Score: C/O Chest Pain: No Risk Factors: Risk Factors: DM, Current or recent (<one month) smoker, HTN, HLP, family history of CAD, obesity. Risk Scores: Score 0 - 3: 2.5% MACE over next 6 weeks - Discharge Home Score 4 - 6: 20.3% MACE over next 6 weeks - Admit for Clinical Observation Score 7 - 10: 72.7% MACE over next 6 weeks - Early Invasive Strategies Current Medications: Current Medications Medications (Trade) Dose Ordered Sig/Mariaelena Start Time Stop Time Status Last Admin Dose Admin Ketorolac Tromethamine (Toradol Im) 60 mg 1X ONCE 03/01/21 16:15 03/01/21 16:16 DC 03/01/21 16:24 60 MG Allergies: Allergies: Allergies Coded Allergies Type Severity Reaction Last Updated Verified iodine Allergy Severe 03/03/16 Yes Penicillins Allergy Intermediate RASH 03/01/16 Yes naproxen Adverse Reaction Mild Nausea and Vomiting 03/01/16 Yes Physical Exam: PE: Constitutional: Well developed, well nourished, no acute distress, non-toxic appearance. 70-year-old female in no apparent distress. Patient complaint level of pain exceeds patient's physical appearance and examination. HENT: Normocephalic, atraumatic. Eyes: Conjunctiva normal, no discharge. Neck: Normal range of motion, no stridor. Cardiovascular: No cyanosis appreciated, distal cap refill less than 2 seconds. Lungs & Thorax: Patient is in no respiratory distress, no audible adventitious lung sounds appreciated. Abdomen: Nontender, no abnormalities noted. Skin: Warm, dry, no erythema, no rash. Back: No tenderness, no deformities. Extremities: No tenderness, no cyanosis, no clubbing, ROM intact, no edema. Neurologic: Alert and oriented X 3, normal motor function, normal sensory function, no focal deficits noted. Psychologic: Affect normal, judgement normal, mood normal. Current Patient Data: Vital Signs: Vital Signs Date Time Temp Pulse Resp B/P (MAP) Pulse Ox O2 Delivery O2 Flow Rate FiO2 03/01/21 16:18 58 22 166/80 (108) 100 Room Air 03/01/21 13:35 98.3 98.3 EKG: EKG: [] Radiology/Procedures: Radiology/Procedures: [] Course & Med Decision Making: Course & Med Decision Making Pertinent Labs and Imaging studies reviewed. (See chart for details) 70-year-old female, vital signs reviewed, presents emergency department concerning running out of her tramadol at home and unable to control her chronic lower extremity aches and pains. Discussed with patient will give Toradol injection IM today in the emergency department, will prescribe muscle relaxer pain medication at home for a short regimen, strict follow-up with primary care and pain management for ongoing pain medications. Discussed with patient appropriateness of emergency department to treat chronic pains, patient gave verbal understanding of and is amenable to ED discharge planning. Discussed with the patient all findings and diagnostic testing as well as the need to follow-up with their primary care provider for further evaluation and treatment or return to the ED if any new or worsening symptoms. Strict return precautions were also discussed at length, the patient voiced understanding and agreement with the discharge planning. The patient was nontoxic in appearance, in no apparent distress, and hemodynamically stable at the time of disposition. Dragon Disclaimer: Dragon Disclaimer: This electronic medical record was generated, in whole or in part, using a voice recognition dictation system. Departure Departure Impression: Primary Impression: Lower extremity pain, bilateral Additional Impression: Neuralgia Disposition: HOME / SELF CARE / HOMELESS Condition: GOOD Referrals: KIKI SAMS (PCP) Additional Instructions: You were seen today in the emergency department for your chronic aches and miriam ns. Please follow-up with your pain management physician for ongoing pain management. Please see your primary care physician for prescriptions for pain medications. Return to the emergency department for worsening symptoms or other concerns. Thank you for visiting our Emergency Department. It was a pleasure taking care of you today in the emergency department and we appreciate you trusting us with your care. If any additional problems come up don't hesitate to return to visit us. Please follow up with your primary care provider so they can plan additional care if needed and know about the problem that you had. If symptoms worsen come back to the Emergency Department. Any concerning symptoms that start such as chest pain, shortness of air, weakness or numbness on one side of the body, running high fevers or any other concerning symptoms return to the ER. Scripts Cyclobenzaprine Hcl (CYCLOBENZAPRINE HCL) 5 Mg Tablet 1 TAB PO QHS, #10 TAB 0 Refills Prov: JERMAINE SINGH APRN 03/01/21 Tramadol Hcl (TRAMADOL HCL) 50 Mg Tablet 50 MG PO DAILY PRN for PAIN, #10 TAB 0 Refills Take 1/2 tablet daily for severe pain Prov: JERMAINE SINGH APRN 03/01/21 JERMAINE SINGH APRN Mar 01, 2021 17:11
[2021-03-01] MEDS ORDERED: CYCL5TAB PO (17:17)
== END 2021-03-01 17:20 | disposition home or self-care (01) ==
LOC: ER 12:03
DX: M79.604 Pain in right leg (principal); M79.605 Pain in left leg; M79.2 Neuralgia and neuritis, unspecified; J45.909 Unspecified asthma, uncomplicated; I10 Essential (primary) hypertension; G25.81 Restless legs syndrome; Z90.89 Acquired absence of other organs; Z90.49 Acquired absence of other specified parts of digestive tract; Z90.710 Acquired absence of both cervix and uterus; Z88.5 Allergy status to narcotic agent; Z88.0 Allergy status to penicillin; Z88.8 Allergy status to other drugs, medicaments and biological substances
CPT/HCPCS: 96372; 99285; J1885

== ENCOUNTER 2021-07-29 10:48 | Emergency (ER) | payer MEDICARE ==
[~2021-07-29] VITALS: Ht 149.9 cm; Wt 69.1 kg
[~2021-07-29 10:48] MED LIST changes: +CYCL5TAB PO
[2021-07-29] MEDS ORDERED: ORPHENADRINE CITRATE 60 MG/2 ML VIAL. IM ONE (12:00)
[2021-07-29] MEDS ORDERED: KETOROLAC 60 MG/2 ML VIAL. IM ONE (12:00)
[2021-07-29] MEDS ORDERED: KETOROLAC 30 MG/ML VIAL. IM ONE (12:15)
[2021-07-29] MEDS ORDERED: DEXAMETHASONE SOD PHOS 4 MG/ML VIAL IVP ONE (14:15)
[2021-07-29 15:28] VITALS: BP 129/79
--- NOTE | 2021-07-29 15:37 | PHYS DOC ---
Past Medical History Past Medical History: Asthma, Hypertension, Other Additional Past Medical Histor: NEUROPATHY, RESTLESS LEG SYNDROME Past Surgical History: Appendectomy, Cholecystectomy, , Hysterectomy, Lumbar Laminectomy Additional Past Surgical Histo: BACK SURGERY Smoking Status: Never Smoker Alcohol Use: None Drug Use: None General Adult EDM: Chief Complaint: BACK PAIN OR INJURY HPI: HPI: Patient is a 70 year old female who presents with lower back pain that radiates down right leg. Patient has history of chronic back pain. Patient states that she normally is treated at with steroid injections for the pain. Denies saddle anesthesia. Denies loss of bladder or bowel. Patient was able to ambulate into the emergency room on her own. Pain is worse with walking and sitting up. Patient reports taking tramadol at home for the pain. History of asthma, hypertension Review of Systems: Review of Systems: ROS At least 10 ROS systems have been reviewed and are negative except as documented in the HPI. General: Negative except as outlined in HPI above. Skin: Negative except as outlined in HPI above. HEENT: Negative except as outlined in HPI above. Neck: Negative except as outlined in HPI above. Respiratory: Negative except as outlined in HPI above.. Cardiovascular: Negative except as outlined in HPI above. Abdomen: Negative except as outlined in HPI above. : Negative except as outlined in HPI above. Back/MSK: Negative except as outlined in HPI above. Neuro: Negative except as outlined in HPI above. Psych: Negative except as outlined in HPI above. Heart Score: C/O Chest Pain: No Risk Factors: Risk Factors: DM, Current or recent (<one month) smoker, HTN, HLP, family his tory of CAD, obesity. Risk Scores: Score 0 - 3: 2.5% MACE over next 6 weeks - Discharge Home Score 4 - 6: 20.3% MACE over next 6 weeks - Admit for Clinical Observation Score 7 - 10: 72.7% MACE over next 6 weeks - Early Invasive Strategies Current Medications: Current Medications Medications (Trade) Dose Ordered Sig/Mariaelena Start Time Stop Time Status Last Admin Dose Admin Dexamethasone Sodium Phosphate (Decadron) 10 mg 1X ONCE 07/29/21 14:15 07/29/21 14:18 DC 07/29/21 14:31 10 MG Ketorolac Tromethamine (Toradol 30mg Vial) 30 mg 1X ONCE 07/29/21 12:15 07/29/21 12:16 DC 07/29/21 12:15 30 MG Ketorolac Tromethamine (Toradol Im) 60 mg 1X ONCE 07/29/21 12:00 07/29/21 12:01 Cancel Orphenadrine Citrate (Norflex) 60 mg 1X ONCE 07/29/21 12:00 07/29/21 12:01 DC 07/29/21 12:10 60 MG Allergies: Allergies: Allergies Coded Allergies Type Severity Reaction Last Updated Verified iodine Allergy Severe 03/03/16 Yes Penicillins Allergy Intermediate RASH 03/01/16 Yes naproxen Adverse Reaction Mild Nausea and Vomiting 03/01/16 Yes Physical Exam: PE: Constitutional: Well developed, well nourished, no acute distress, non-toxic appearance. [] HENT: Normocephalic, bilateral external ears normal, no oral exudates, nose normal. [] Eyes: PERRLA, conjunctiva normal, no discharge. [] Neck: Normal range of motion, no tenderness, supple, no stridor. [] Cardiovascular:Heart rate regular rhythm, no murmur [] Lungs & Thorax: Bilateral breath sounds clear to auscultation [] Abdomen: Bowel sounds normal, soft, no tenderness, no masses Skin: Warm, dry, no erythema, no rash. [] Back: Lower back tenderness, radiates down right leg, denies urinary retention or loss of bowel, no saddle anesthesia Extremities: No tenderness, no cyanosis, no clubbing, ROM intact, no edema. [] Neurologic: Alert and oriented X 3, normal motor function, normal sensory function, no focal deficits noted. [] Psychologic: Affect normal, judgement normal, mood normal. [] Current Patient Data: Vital Signs: Vital Signs Date Time Temp Pulse Resp B/P (MAP) Pulse Ox O2 Delivery O2 Flow Rate FiO2 07/29/21 12:28 57 18 144/81 (102) 96 Room Air 07/29/21 10:50 97.8 97.8 EKG: EKG: [] Radiology/Procedures: Radiology/Procedures: [] Course & Med Decision Making: Course & Med Decision Making Pertinent Labs and Imaging studies reviewed. (See chart for details) [] Dragon Disclaimer: Dragon Disclaimer: This electronic medical record was generated, in whole or in part, using a voice recognition dictation system. Departure Departure Impression: Primary Impression: Sciatic leg pain Disposition: HOME / SELF CARE / HOMELESS Condition: STABLE Referrals: KIKI SAMS (PCP) Patient Instructions: Sciatica, [id number] Additional Instructions: You are seen in the emergency room for chronic, lower back pain. Your pain was treated while in the ER. Follow-up with your doctor for further management. Return emergency room for worsening symptoms or concerns such as loss of bowel or bladder. EMERGENCY DEPARTMENT GENERAL DISCHARGE INSTRUCTIONS Thank you for coming to [facility] Emergency Department (ED) today and trusting us with you care. We trust that you had a positive experience in our Emergency Department. If you wish to speak to the department management, you may call the Director at [phone]. YOUR FOLLOW UP INSTRUCTIONS ARE FOLLOWS: 1. Do you have a private Doctor? If you do not have a private doctor, please ask for a resource list of physicians or clinics that may be able to assist you with follow up care. 2. The Emergency Physicain has interpreted your x-rays. The X-Ray specialist will also review them. If there is a change in the findings, you will be notified in 48 hours when at all possible. 3. A lab test or culture has been done, your results will be reviewed and you will be notified if you need a change in treatment. ADDITIONAL INSTRUCTIONS AND INFORMATION: 1. Your care today has been supervised by a physician who is specially trained in emergency care. Many problems require more than one evaluation for a complete diagnosis and treatment. We recommend that you schedule your follow up appointment as recommended to ensure complete treatment of you illness or injury. If you are unable to obtain follow up care and continue to have a problem, or if your condition worsens, we recommend that you return to the ED. 2. We are not able to safely determine your condition over the phone nor are we able to give sound medical advice over the phone. For these safety reasons, if you call for medical advice we will ask you to come to the ED for further evaluation. 3. If you have any questions regarding these discharge instructions please call the ED at [phone]. SAFETY INFORMATION: In the interest of safety, wellness, and injury prevention; we encourage you to wear your sealbelt, if you smoke; quite smoking, and we encourage family to use a protective helmet for bicycling and other sporting events that present an increased risk for head injury. IF YOUR SYMPTOMS WORSEN OR NEW SYMPTOMS DEVELOP, OR YOU HAVE CONCERNS ABOUT YOUR CONDITION; OR IF YOUR CONDITION WORSENS WHILE YOU ARE WAITING FOR YOUR FOLLOW UP APPOINTMENT; EITHER CONTACT YOUR PRIMARY CARE DOCTOR, THE PHYSICIAN WHOSE NAME AND NUMBER YOU WERE GIVEN, OR RETURN TO THE ED IMMEDIATELY. LIBAN MATOS APRN Jul 29, 2021 15:37
[2021-07-29] MEDS ORDERED: MORPHINE SULFATE 4 MG/ML INJ. ONE (15:44)
[2021-07-29] MEDS ORDERED: MORPHINE SULFATE 4 MG/ML INJ. IVP ONE (16:15)
== END 2021-07-29 15:53 | disposition home or self-care (01) ==
LOC: ER 10:48
DX: M54.41 Lumbago with sciatica, right side (principal); I10 Essential (primary) hypertension; J45.909 Unspecified asthma, uncomplicated; Z88.0 Allergy status to penicillin; Z88.5 Allergy status to narcotic agent; Z88.8 Allergy status to other drugs, medicaments and biological substances
CPT/HCPCS: 96372; 96374; 99285; J1100; J1885; J2360